=== PATIENT | male | born 1940 ===

== ENCOUNTER 2023-03-03 07:58 | Emergency (ER) | payer MEDICARE, OTHER ==
[2023-03-03 08:20] VITALS: PULSE 76
[2023-03-03 09:19] LABS: BASOPHILS ABSOLUTE AUTO 0.05 K/uL (0.00-0.20); BASOPHILS PERCENT AUTO 0.5 % (0.0-2.0); EOSINOPHILS ABSOLUTE AUTO 0.17 K/uL (0.00-0.50); EOSINOPHILS PERCENT AUTO 1.7 % (0.0-5.0); HEMOGLOBIN 15.4 g/dL (13.1-16.8); LYMPHOCYTES ABSOLUTE AUTO 1.51 K/uL (0.50-3.50); LYMPHOCYTES PERCENT AUTO 15.3 % (10.0-50.0); MEAN CORPUSCULAR HEMOGLOBIN 29.1 pg (28.2-33.3); MEAN CORPUSCULAR HGB CONC 33.5 g/dL (31.7-36.0); MEAN CORPUSCULAR VOLUME 86.8 fL (84.0-98.0); MONOCYTES PERCENT AUTO 8.1 % (2.0-14.0); NEUTROPHILS ABSOLUTE AUTO 7.36 K/uL (1.40-7.00); NEUTROPHILS PERCENT AUTO 74.4 % (45.0-80.0); PLATELET COUNT,PLT 219 K/uL (150-350); RED CELL DISTRIBUTION WIDTH 13.3 % (11.2-14.1); WHITE BLOOD CELL COUNT,WBC 9.9 K/uL (4.0-10.2)
[2023-03-03 09:34] LABS: APPEARANCE,URINE SLIGHTLY CLOUDY; BILIRUBIN,URINE NEGATIVE (NEGATIVE); COLOR,URINE YELLOW; GLUCOSE,URINE NEGATIVE (NEGATIVE); KETONES,URINE TRACE mg/dL (NEGATIVE); LEUKOCYTE ESTERASE,URINE NEGATIVE (NEGATIVE); NITRITE,URINE NEGATIVE (NEGATIVE); OCCULT BLOOD,URINE NEGATIVE (NEGATIVE); PH,URINE 5.5 (5.0-9.0); PROTEIN,URINE NEGATIVE (NEGATIVE)
[2023-03-03 09:42] LABS: ALBUMIN 4.2 g/dL (3.4-5.0); ANION GAP 6.1 meq/L (7-15); BILIRUBIN TOTAL 0.8 mg/dL (0.2-1.0); CALCIUM 9.3 mg/dL (8.5-10.1); CARBON DIOXIDE,CO2 29.9 mmol/L (21.0-32.0); CREATININE 1.43 mg/dL (0.51-1.17); EST CRCL DRUG DOSING (CG) 35.96 mL/min; PROTEIN TOTAL,TP 7.4 g/dL (6.4-8.2)
[2023-03-03] MEDS ORDERED: Sodium Chloride 0.9% 10 ML Syringe FLUSH PRN (10:02)
[2023-03-03] MEDS ORDERED: Iopamidol 612 MG/ML 100 ML Bottle IVPUSH STA (10:03)
[2023-03-03] MEDS ORDERED: Sodium Chloride 0.9% 500 ML IV SCH (10:15)
[2023-03-03 11:01] VITALS: BP 184/79
== END 2023-03-03 12:51 | disposition home or self-care (01) ==
LOC: LL.ED 07:58
DX: M54.50 Low back pain, unspecified (principal); I10 Essential (primary) hypertension; Z79.899 Other long term (current) drug therapy
CPT/HCPCS: 36415; 72100; 74177; 80053; 81003; 85025; 99284; J7040; Q9967

== ENCOUNTER 2023-11-25 18:25 | Emergency (ER) | payer MEDICARE, OTHER ==
[2023-11-25] MEDS: Bacitracin Oint 1 GM U/D Packet TOP ONE (18:51)
[2023-11-25] MEDS ORDERED: cloNIDine 0.1 MG Tab PO ONE (19:17)
[2023-11-25 19:26] VITALS: BP 180/83; PULSE 83
== END 2023-11-25 19:50 | disposition home or self-care (01) ==
LOC: LL.ED 18:25
DX: S00.83XA Contusion of other part of head, initial encounter (principal); S00.211A Abrasion of right eyelid and periocular area, initial encounter; S50.311A Abrasion of right elbow, initial encounter; S80.211A Abrasion, right knee, initial encounter; I10 Essential (primary) hypertension; Z90.49 Acquired absence of other specified parts of digestive tract; Z79.899 Other long term (current) drug therapy; W01.0XXA Fall on same level from slipping, tripping and stumbling without subsequent striking against object, initial encounter; Y93.89 Activity, other specified
CPT/HCPCS: 93005; 93010; 99284